=== PATIENT | male | born 1995 | race Caucasian/White ===

== ENCOUNTER 2022-09-18 07:53 | Emergency (ER) | payer SELFPAY ==
[2022-09-18] MEDS ORDERED: Diphtheria,Pertussis(Acell),Tetanus Vaccine 0.5 ML Syringe IM ONE (08:13)
[2022-09-18] MEDS ORDERED: Ketorolac 30 MG/ML SDV IM STA (08:34)
[2022-09-18] MEDS ORDERED: Cephalexin 500 MG Cap PO STA (08:46)
[2022-09-18] MEDS ORDERED: Lidocaine/Epineph/Tetracaine 3 ML Syringe TOP ONE (08:58)
== END 2022-09-18 09:30 | disposition home or self-care (01) ==
LOC: MW.ED 07:53
DX: S62.637B Displaced fracture of distal phalanx of left little finger, initial encounter for open fracture (principal); Z88.0 Allergy status to penicillin; Z23 Encounter for immunization; W23.0XXA Caught, crushed, jammed, or pinched between moving objects, initial encounter; Y92.89 Other specified places as the place of occurrence of the external cause; Y99.0 Civilian activity done for income or pay
CPT/HCPCS: 73130; 90471; 90715; 96372; 99283; A9270; J1885